=== PATIENT | female | born 2000 | race African-American/Black ===

== ENCOUNTER 2021-06-28 18:33 | Emergency (ER) | payer OTHER ==
[2021-06-28 18:41] VITALS: BP 100/65; PULSE 84; TEMP 97.9; BMI 19.5
[2021-06-28] MEDS ORDERED: MOXIFLOXACIN HCL 0.5% OPHTHALMIC 3 ML BOTTLE OS ONE (19:42)
== END 2021-06-28 20:07 | disposition home or self-care (01) ==
LOC: JERFT 18:33
DX: H18.822 Corneal disorder due to contact lens, left eye (principal); Y77.11 Contact lens associated with adverse incidents
CPT/HCPCS: 99283-25

== ENCOUNTER 2021-10-01 17:56 | Emergency (ER) | payer OTHER ==
[2021-10-01 18:20] VITALS: BP 114/74; PULSE 74; TEMP 97.9; BMI 19.8
== END 2021-10-01 19:43 | disposition home or self-care (01) ==
LOC: JERFT 17:56
DX: H01.116 Allergic dermatitis of left eye, unspecified eyelid (principal); H01.113 Allergic dermatitis of right eye, unspecified eyelid
CPT/HCPCS: 99283-25

== ENCOUNTER 2021-10-28 09:19 | Emergency (ER) | payer OTHER ==
[2021-10-28 09:47] VITALS: BP 122/88; PULSE 84; TEMP 98.6; BMI 19.7
[2021-10-28] MEDS ORDERED: ERYTHROMYCIN 0.5% OPHTHALMIC OINTMENT 3.5 GM TUBE OU ONE (10:31)
[2021-10-28] MEDS ORDERED: ERYTHROMYCIN 0.5% OPHTHALMIC OINTMENT 3.5 GM TUBE ONE (11:15)
[2021-10-28] MEDS ORDERED: predniSONE 20 MG TABLET (UD) ONE (11:15)
[2021-10-28] MEDS ORDERED: predniSONE 10 MG TABLET (UD) ONE (11:15)
[2021-10-28] MEDS ORDERED: predniSONE 20 MG TABLET (UD) PO ONE (11:31)
[2021-10-29] MEDS ORDERED: predniSONE 20 MG TABLET (UD) PO ONE (10:00)
== END 2021-10-28 11:33 | disposition home or self-care (01) ==
LOC: JERFT 09:19
DX: L24.89 Irritant contact dermatitis due to other agents (principal)
CPT/HCPCS: 99284-25